=== PATIENT | female | born 1990 | race Caucasian/White ===

== ENCOUNTER 2016-10-10 12:21 | Emergency (ER) | payer MEDICAID, OTHER ==
[~2016-10-10] VITALS: Ht 157.5 cm; Wt 181.0 kg
[2016-10-10 12:50] VITALS: Ht 157.5 cm; Wt 181.0 kg
--- NOTE | 2016-10-10 13:36 | ERA ---
ER Documentation Chief Complaint Date/Time DATE: 10/10/16 TIME: 13:35 Chief Complaint BIB RA FOR EVAL OF BILAT LEG WEAKNESS X 6 MONTHS HPI The patient is a 25-year-old female, presenting to the ER because of chronic bilateral lower extremity weakness for more than 2 years, worse for the last 6 months. She denies fever, chills, neck pain, chest pain, dyspnea, abdominal pain, vomiting, dysuria, diarrhea. She does not smoke does not drink Past medical history: Obesity Past surgical history: Right ovarian cyst ROS All systems reviewed and are negative except as per history of present illness. Medications Home Meds Reported Medications Multivitamins* (Theragran*) 1 Tab Tab, 1 TAB PO DAILY, TAB 10/10/16 Allergies Allergies: Coded Allergies: No Known Allergy (Unverified , 10/10/16) PMhx/Soc Medical and Surgical Hx: pt denies Medical Hx History of Surgery: Yes (ovarian torsion) Hx Psychiatric Problems: No Hx Miscellaneous Medical Probl: Yes (obese) Hx Alcohol Use: No Hx Substance Use: No Hx Tobacco Use: No Smoking Status: Never smoker Physical Exam Vitals Vital Signs Date Time Temp Pulse Resp B/P Pulse Ox O2 Delivery O2 Flow Rate FiO2 10/10/16 18:58 98.0 87 18 156/90 100 Room Air 10/10/16 16:37 98 10 100 Room Air 10/10/16 13:01 72 21 162/93 100 Room Air 10/10/16 12:50 98.2 87 19 173/82 100 Physical Exam Const: No acute distress. Head: Atraumatic. Eyes: Normal Conjunctiva. ENT: Normal External Ears, Nose and Mouth. Neck: Full range of motion. No meningismus. Resp: Clear to auscultation bilaterally. Cardio: Regular rate and rhythm, no murmurs. Abd: Soft, obese, normal bowel sounds, non tender. Skin: No petechiae or rashes. Back: No midline or flank tenderness. Ext: No cyanosis, or edema. No calf tenderness Neur: Awake and alert. No focal deficit Psych: Normal Mood and Affect. Result Diagram: 10/10/16 1410 10/10/16 1410 Results 24 hrs Laboratory Tests Test 10/10/16 14:10 White Blood Count 9.110^3/ul Red Blood Count 4.8210^6/ul Hemoglobin 14.8g/dl Hematocrit 43.3% Mean Corpuscular Volume 89.8fl Mean Corpuscular Hemoglobin 30.7pg Mean Corpuscular Hemoglobin Concent 34.2g/dl Red Cell Distribution Width 11.9% Platelet Count 45486^3/UL Mean Platelet Volume 11.3fl Neutrophils % 76.0% Lymphocytes % 17.7% Monocytes % 5.2% Eosinophils % 0.7% Basophils % 0.2% Nucleated Red Blood Cells % 0.0/100WBC Neutrophils # 6.910^3/ul Lymphocytes # 1.610^3/ul Monocytes # 0.510^3/ul Eosinophils # 0.110^3/ul Basophils # 0.010^3/ul Nucleated Red Blood Cells # 0.010^3/ul Sodium Level 140mmol/L Potassium Level 3.6mmol/L Chloride Level 105mmol/L Carbon Dioxide Level 26mmol/L Anion Gap 13 Blood Urea Nitrogen 12mg/dl Creatinine 0.49mg/dl Glucose Level 101mg/dl Calcium Level 9.7mg/dl Total Bilirubin 0.4mg/dl Direct Bilirubin 0.00mg/dl Indirect Bilirubin 0.4mg/dl Aspartate Amino Transf (AST/SGOT) 28IU/L Alanine Aminotransferase (ALT/SGPT) 43IU/L Alkaline Phosphatase 110IU/L Total Protein 9.0g/dl Albumin 4.6g/dl Globulin 4.40g/dl Albumin/Globulin Ratio 1.04 Thyroid Stimulating Hormone (TSH) 2.760MIU/L [facility] MEDICAL MAKING DECISION: The patient is a 25-year-old female, presenting with chronic generalized weakness of unclear etiology, most likely due to her chronic obesity. The differential diagnoses considered include but are not limited to depression, psychiatric illness, debility Departure Diagnosis: Primary Impression: Generalized weakness Condition: Good Comments I discussed the findings with the patient. I advised the patient to follow-up with the primary physician in about 1-2 days, sooner if needed and return if any concern. The patient's blood pressure was elevated (>120/80) but appears stable without evidence of hypertension emergency or urgency. The patient was counseled about the risks of hypertension and urged to pursue outpatient monitoring and therapy within a week with their primary care physician. VALERIE GOODRICH MD October 10, 2016 13:36
[2016-10-10] MEDS ORDERED: MULTI PO (14:19)
[2016-10-10 14:29] LABS: ADD SCAN DIFF NO
[2016-10-10 14:31] LABS: BASOPHILS % 0.2 % (0.0-2.0); EOSINOPHILS # 0.1 10^3/ul (0.0-0.5); EOSINOPHILS % 0.7 % (0.0-7.0); HEMATOCRIT 43.3 % (37.0-47.0); HEMOGLOBIN 14.8 g/dl (12.0-16.0); LYMPHOCYTES # 1.6 10^3/ul (0.8-2.9); LYMPHOCYTES % 17.7 % (15.0-51.0); MEAN CORPUSCULAR HEMOGLOBIN 30.7 pg (29.0-33.0); MEAN CORPUSCULAR HGB CONC 34.2 g/dl (32.0-37.0); MEAN CORPUSCULAR VOLUME 89.8 fl (82.0-101.0); MEAN PLATELET VOLUME 11.3 fl (7.4-10.4); MONOCYTE # 0.5 10^3/ul (0.3-0.9); MONOCYTES % 5.2 % (0.0-11.0); NEUTROPHIL # 6.9 10^3/ul (1.6-7.5); PLATELET COUNT 216 10^3/UL (140-415); RED BLOOD COUNT 4.82 10^6/ul (4.20-5.40); RED CELL DISTRIBUTION WIDTH 11.9 % (11.5-14.5); WHITE BLOOD COUNT 9.1 10^3/ul (4.8-10.8)
[2016-10-10 14:49] LABS: ALBUMIN 4.6 g/dl (3.3-4.9); ALBUMIN/GLOBULIN RATIO 1.04; BILIRUBIN,INDIRECT 0.4 mg/dl (0-1.1); BILIRUBIN,TOTAL 0.4 mg/dl (0.2-1.3); CALCIUM 9.7 mg/dl (8.4-10.2); CREATININE 0.49 mg/dl (0.44-1.00); POTASSIUM 3.6 mmol/L (3.5-5.1)
[2016-10-10 15:19] LABS: THYROID STIMULATING HORMONE 2.76 MIU/L (0.465-4.680)
[2016-10-10 18:58] VITALS: BP 156/90; PULSE 87; RESP 18; TEMP 98
== END 2016-10-10 20:56 | disposition home or self-care (01) ==
LOC: E/R 12:21
DX: R53.1 Weakness (principal); R40.2252 Coma scale, best verbal response, oriented, at arrival to emergency department; E66.9 Obesity, unspecified; R40.2142 Coma scale, eyes open, spontaneous, at arrival to emergency department; R40.2362 Coma scale, best motor response, obeys commands, at arrival to emergency department; Z68.45 Body mass index [BMI] 70 or greater, adult
CPT/HCPCS: 80053; 84443; 85025; Z7502; 99283

== ENCOUNTER 2017-05-04 12:27 | Emergency (ER) | payer MEDICAID, OTHER ==
[~2017-05-04] VITALS: Ht 157.5 cm; Wt 170.0 kg
[~2017-05-04 12:27] MED LIST: MULTI PO
--- NOTE | 2017-05-04 12:59 | RADRPT ---
PROCEDURE: CT Brain without. CLINICAL INDICATION: Bilateral lower extremity weakness. TECHNIQUE: A CT of the brain was performed on multidetector high-resolution CT scanner utilizing a xial sections from the skull base through the vertex without contrast. The scan was reviewed in sof t tissue brain and high frequency resolution bone algorithm windows. Images were reviewed on a high -resolution PACS workstation. One or more the following does reduction techniques were utilized: Aut omated exposure control, adjustment of the mA/ or kV according to patient's size, or use of iterativ e reconstruction technique. The exam CTDI = 43.35 mGy and the DLP = 901.36 mGy-cm. DICOM images are available. COMPARISON: None available. FINDINGS: The ventricles and sulci are age-appropriate. There is no intracranial hemorrhage, mass effect or mi dline shift. No abnormal intra-axial or extra-axial fluid collections are seen. The neves/white rena er differentiation is preserved. No acute skull abnormality is noted. The visualized paranasal sinus es are essentially clear. IMPRESSION: 1. No acute intracranial hemorrhage, transcortical infarction or mass effect. If clinical concern p ersists consider brain MRI. RPTAT: HH .Christiano Mcelroy MD, MD Date Time Electronically viewed and signed by .Christiano Mcelroy MD, MD on 05/04/2017 12:59 .N/
--- NOTE | 2017-05-04 13:55 | ERD ---
ER Documentation Chief Complaint Chief Complaint BIB RA FOR EVAL OF WORSENING LEFT LEG NUMBNESS X 1 YEAR. HPI This is a 26-year-old female history of morbid obesity who presents to the emergency room for evaluation. The patient has had weakness for at least one year. She states that she has been bedridden for 1 year and being cared for by her mother and sister. She states that she has had weakness and really not had the use of her bilateral lower extremities for this timeframe. She notes increasing numbness and tingling. She denies any fevers chills back pain headache or shortness of breath. Over the last 6 months she has noted incontinence of stool and urine. She states that the reason she is presenting today is because she recently came into insurance and went to an urgent care center who sent her to the emergency room. ROS All systems reviewed and are negative except as per history of present illness. Medications Home Meds Discontinued Reported Medications Multivitamins* (Theragran*) 1 Tab Tab, 1 TAB PO DAILY, TAB 10/10/16 Allergies Allergies: Coded Allergies: No Known Allergy (Unverified , 05/04/17) PMhx/Soc History of Surgery: Yes (ovarian torsion) Hx Psychiatric Problems: No Hx Miscellaneous Medical Probl: Yes (obese) Hx Alcohol Use: No Hx Substance Use: No Hx Tobacco Use: No FmHx Family History: diabetes Physical Exam Vitals Vital Signs Date Time Temp Pulse Resp B/P Pulse Ox O2 Delivery O2 Flow Rate FiO2 05/04/17 16:33 83 20 141/67 99 Room Air 05/04/17 12:42 98.1 81 18 171/81 99 Physical Exam General: Well developed, well nourished, no acute distress Head: Normocephalic, atraumatic. Eyes: Pupils equally reactive, EOM intact ENT: Moist mucous membranes Neck: Supple, no lymphadenopathy Respiratory: Lungs clear bilaterally, no distress Cardiovascular: RRR, no murmurs, rubs, or gallops Abdominal: Soft, non-tender, non-distended, no peritoneal signs : Deferred MSK: The patient has significant weakness to bilateral lower extremities only able to wiggle toes. Decreased deep tendon reflexes. Sensation is also decreased, this is bilateral Neurologic: Alert and oriented, bilateral lower extremity weakness as described above normal speech,no cerebellar signs Skin: No rash Psych: Normal mood Result Diagram: 05/04/17 1425 05/04/17 1425 Results 24 hrs Laboratory Tests Test 05/04/17 14:25 White Blood Count 10.210^3/ul Red Blood Count 4.9910^6/ul Hemoglobin 15.2g/dl Hematocrit 46.0% Mean Corpuscular Volume 92.2fl Mean Corpuscular Hemoglobin 30.5pg Mean Corpuscular Hemoglobin Concent 33.0g/dl Red Cell Distribution Width 12.0% Platelet Count 96056^3/UL Mean Platelet Volume 11.2fl Neutrophils % 79.7% Lymphocytes % 14.4% Monocytes % 5.0% Eosinophils % 0.5% Basophils % 0.2% Nucleated Red Blood Cells % 0.0/100WBC Neutrophils # 8.110^3/ul Lymphocytes # 1.510^3/ul Monocytes # 0.510^3/ul Eosinophils # 0.110^3/ul Basophils # 0.010^3/ul Nucleated Red Blood Cells # 0.010^3/ul Prothrombin Time 12.9Sec Prothrombin Time Ratio 1.0 INR International Normalized Ratio 0.96 Activated Partial Thromboplast Time 29.2Sec Sodium Level 140mmol/L Potassium Level 4.3mmol/L Chloride Level 103mmol/L Carbon Dioxide Level 26mmol/L Anion Gap 15 Blood Urea Nitrogen 11mg/dl Creatinine 0.49mg/dl Glucose Level 96mg/dl Calcium Level 9.4mg/dl Procedures/MDM EKG, MONITORS, & DIAGNOSTIC IMAGING: EKG: I reviewed and interpreted a 12-lead EKG. Rhythm: Normal sinus rhythm Ectopy: None Intervals: No abnormalities ST segments: No elevations or depressions T waves: No contiguous inversions CT brain: No evidence of acute intracranial process per radiologist MRI of the T and L-spine Pending MRI brain Pending LAB INTERPRETATION: No leukocytosis or evidence of dehydration MEDICAL DECISION MAKING: The patient presents with at least 1 year of symptoms of bilateral lower extremity weakness, paresthesias and now worsening incontinence of bladder and stool. The chronicity of her symptoms are troubling of the patient has not sought care for this timeframe. The patient has been bedridden for this timeframe. Her differential includes cauda equina, cord compression, spinal mass, less likely Guillain-Estrada or other demyelinating process though not possible. Very low clinical concern for stroke given bilateral lower extremity nature. No fall or trauma to suggest spinal cord blood traumatic injury. Regardless, the patient is unable to walk and unable to ambulate. This is abnormal in an otherwise normal 26-year-old female. The patient will warrant inpatient hospitalization. CT of the brain is warranted to rule out hemorrhage. MRI of the brain, T and L-spine would be reasonable to rule out central nervous system process versus lower cord process. Given the chronicity of her symptoms these can be obtained either in the emergency room or an inpatient basis. Given the chronicity of her symptoms, I do not believe emergent phone call to neurology or neurosurgery is necessary at this time. ER COURSE: The patient's telemetry testing and CT imaging are negative. Unfortunately at this time the patient will not fit in our MRI machine. Multiple phone calls were made to the soldering technician and the patient does not meet criteria for MRI. I attempted to admit the patient to the hospital for further evaluation and neurology consultation however the hospitalist team is concerned that definitive care cannot provided to this patient. Given the chronicity of the symptoms they will not accept the patient. They have however attempted to contact case management to facilitate outpatient care with this individual. I attempted for prolonged period of time over 7 hours to contact other facilities to find out if they could care for this patient. Other facilities include [facility], [place], [facility], [facility] [place] [facility]. None of these facilities could manage this patient based on her body habitus and size. I attempted to obtain CT imaging of the spine but the patient's girth is too significant to fit through the machine. I have attempted now for over 7 hours to find placement for this patient. Unfortunately the admitting team is not comfortable managing this patient and I understand argument about the chronicity and inability to obtain MRI. However, based on my conversation with the patient's mother, the situation at home is significant. The mother is caring for the patient and appears to be helping with her activities of daily living though it is quite difficult. I believe home health care would be significantly helpful to this patient and family. Shortly, I do not have a reason for this patient's weakness. While it can possibly potentially be related to her morbid obesity I cannot rule out spinal process. However, on the other side of the argument this has been present for at least 12 months. The likelihood of acute process is extremely low and remote and outpatient follow-up would be reasonable. Fortunately, I was able to speak to Dr. Braun, patient liaison for the patient's PMD. She states that she can help the situation and obtain a stat home health consult tomorrow morning as well as order a stat outpatient open MRI. She feels that this would be possible with the patient's insurance. Based on this follow-up in progress as well as the fact that social work will be calling the patient in the morning and that case management will also be contacting the patient I believe the discharge may be reasonable. I had a prolonged and honest conversation with the patient and mother regarding this plan. The mother feels comfortable caring for the patient at this time. I did discuss that they can return to the emergency room if anything falls through where the patient has worsening symptoms especially the patient has a fever. The mother is agreeable and the patient will be discharged. I kept the patient and/or family informed of laboratory and diagnostic imaging results throughout the emergency room course. DISPOSITION PLAN: We discussed follow up with the patient's primary care doctor within 24 to 48 hours as needed. We also discussed return to the emergency room for worsening symptoms or worsening condition. Outpatient referral: primary care physician, home health, MRI as described above Discharge Medications: None required Departure Diagnosis: Primary Impression: Morbid obesity Additional Impression: Weakness Condition: Stable GIANFRANCO RICHEY MD May 04, 2017 13:55
[2017-05-04 14:35] LABS: BASOPHILS % 0.2 % (0.0-2.0); EOSINOPHILS # 0.1 10^3/ul (0.0-0.5); EOSINOPHILS % 0.5 % (0.0-7.0); HEMOGLOBIN 15.2 g/dl (12.0-16.0); LYMPHOCYTES # 1.5 10^3/ul (0.8-2.9); LYMPHOCYTES % 14.4 % (15.0-51.0); MEAN CORPUSCULAR HEMOGLOBIN 30.5 pg (29.0-33.0); MEAN CORPUSCULAR VOLUME 92.2 fl (82.0-101.0); MEAN PLATELET VOLUME 11.2 fl (7.4-10.4); MONOCYTE # 0.5 10^3/ul (0.3-0.9); NEUTROPHIL # 8.1 10^3/ul (1.6-7.5); NEUTROPHILS % 79.7 % (39.0-77.0); PLATELET COUNT 213 10^3/UL (140-415); RED BLOOD COUNT 4.99 10^6/ul (4.20-5.40); WHITE BLOOD COUNT 10.2 10^3/ul (4.8-10.8)
[2017-05-04 14:56] LABS: INR 0.96; PARTIAL THROMBOPLASTIN TIME 29.2 Sec (25.0-35.0); PROTIME 12.9 Sec (11.9-14.9)
[2017-05-04 15:00] LABS: CALCIUM 9.4 mg/dl (8.4-10.2); CREATININE 0.49 mg/dl (0.44-1.00); POTASSIUM 4.3 mmol/L (3.5-5.1)
[2017-05-04 15:29] VITALS: Ht 157.5 cm; Wt 170.0 kg
[2017-05-04 21:26] VITALS: BP 146/80; PULSE 93; RESP 18; TEMP 98.3
== END 2017-05-04 21:30 | disposition home or self-care (01) ==
LOC: E/R 12:27
DX: E66.01 Morbid (severe) obesity due to excess calories (principal); R40.2252 Coma scale, best verbal response, oriented, at arrival to emergency department; R40.2142 Coma scale, eyes open, spontaneous, at arrival to emergency department; R40.2362 Coma scale, best motor response, obeys commands, at arrival to emergency department; R51 Headache; R07.9 Chest pain, unspecified; Z68.44 Body mass index [BMI] 60.0-69.9, adult
CPT/HCPCS: 70450; 80048; 85025; 85610; 85730; 93005; Z7502